=== PATIENT | female | born 1990 | race Caucasian/White ===

== ENCOUNTER 2018-11-23 18:38 | Emergency (ER) | payer SELFPAY ==
[2018-11-23] MEDS ORDERED: ONDANSETRON 4 MG (ODT) TAB ONE (20:09)
[2018-11-23 20:39] LABS: Urine Bacteria 20-50 /HPF (<20); Urine RBC <5 /HPF (NONE SEEN)
[2018-11-23 20:40] LABS: Urine Amorphous Sediment 3+ /HPF (NONE SEEN); Urine Culture Reflex Order NOT NEEDED; Urine Mucus HEAVY /HPF (NONE SEEN)
[2018-11-23 21:51] LABS: Urine Blood TRACE (NEG); Urine Glucose NEGATIVE (NEG); Urine Protein TRACE (NEG); Urine Specific Gravity 1.015 (1.005-1.030); Urine pH 8.5 (5.0-7.0)
[2018-11-23] MEDS ORDERED: NA CHLORIDE 0.9% 1,000 ML ONE (21:59)
--- NOTE | 2018-11-23 22:25 | ER ---
Nurse's Notes [facility] Name: Elvia Carrington Age: 28 yrs Sex: Female : 1990 Arrival Date: 11/23/2018 Time: 18:45 Bed 12 Private MD: Diagnosis: Nausea and vomiting;Fever, unspecified;Volume depletion Presentation: 11/23 18:45 Presenting complaint: Patient states: subjective fever, vomiting since 1500. Transition sv of care: patient was not received from another setting of care. Onset of symptoms. Care prior to arrival: None. 18:45 Method Of Arrival: Ambulatory sv 18:45 Acuity: OSVALDO 4 sv 19:21 Risk Assessment: Do you want to hurt yourself or someone else? Patient reports no rv desire to harm self or others. Initial Sepsis Screen: Does the patient meet any 2 criteria? No. Patient's initial sepsis screen is negative. Does the patient have a suspected source of infection? No. Patient's initial sepsis screen is negative. Triage Assessment: 18:47 General: Appears in no apparent distress. uncomfortable, Behavior is calm, cooperative, sv appropriate for age. Neuro: Level of Consciousness is awake, alert, obeys commands, Gait is steady. Respiratory: Respiratory effort is even, unlabored. GI: Reports vomiting. 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 - Social history:: Smoking status: unknown. - Ebola Screening: : No symptoms or risks identified at this time. Screenin:21 Abuse screen: Denies threats or abuse. Denies injuries from another. Nutritional rv screening: No deficits noted. Tuberculosis screening: No symptoms or risk factors identified. Fall Risk None identified. Assessment: 19:19 General: Appears in no apparent distress. comfortable, Behavior is calm, cooperative. rv Pain: Denies pain. Neuro: Level of Consciousness is awake, alert, obeys commands, Oriented to person, place, time, situation. Cardiovascular: Patient's skin is warm and dry. Respiratory: Airway is patent. GI: Reports vomiting. GI: Abdomen is flat, Bowel sounds present X 4 quads. : No signs and/or symptoms were reported regarding the genitourinary system. EENT: No signs and/or symptoms were reported regarding the EENT system. Derm: Skin is intact. Musculoskeletal: No signs and/or symptoms reported regarding the musculoskeletal system. 20:00 Reassessment: Patient is alert, oriented x 3, equal unlabored respirations, skin bb warm/dry/pink. flu and strep swab obtained pt awaiting results, family at bedside. 22:35 Reassessment: Patient is alert, oriented x 3, equal unlabored respirations, skin bb warm/dry/pink. pt states she is feeling achy would like some analgesic Yadira Dumont QUALITY ASSURANCE NURSE notified pt medicated see APR. Pt is awaiting completion of IV fluids prior to discharge. 22:59 Reassessment: Patient is alert, oriented x 3, equal unlabored respirations, skin bb warm/dry/pink. pt verbalized understanding of and agrees to plan of care discharge instructions given pt ambulated with steady gait to exit accompanied by family Patient states feeling better. Vital Signs: 18:46 BP 121 / 85; Pulse 97; Resp 16; Temp 98.2(O); Pulse Ox 100% ; Weight 55.75 kg (M); rv Height 5 ft. 0 in. (152.40 cm); 21:39 BP 111 / 73 Supine; Pulse 97; Resp 16 S; Pulse Ox 100% on R/A; bb 21:41 BP 110 / 79 Sitting; Pulse 100; Resp 16 S; Pulse Ox 100% on R/A; bb 21:43 BP 108 / 73 Standing; Pulse 117; Resp 16 S; Pulse Ox 100% on R/A; bb 23:00 BP 113 / 70; Pulse 89; Resp 16 S; Pulse Ox 100% on R/A; bb 18:46 Body Mass Index 24.00 (55.75 kg, 152.40 cm) rv ED Course: 18:45 Patient arrived in ED. sv 18:45 Triage completed. sv 18:46 Arm band placed on. sv 19:06 Devin Isidro, JOSEFA is Primary Nurse. rv 19:21 Patient has correct armband on for positive identification. Call light in reach. Side rv rails up X 1. Pulse ox on. 19:45 Yadira Dumont FNP-C is PHCP. snw 19:46 Blue Montague MD is Attending Physician. snw 20:11 Flu and/or RSV swab sent to lab. Strep swab sent to lab. bb 21:57 Inserted saline lock: 20 gauge in right antecubital area, using aseptic technique. wy Blood collected. 22:36 No provider procedures requiring assistance completed. bb 23:00 IV discontinued, intact, bleeding controlled, No redness/swelling at site. Pressure bb dressing applied. Administered Medications: 20:11 Drug: Zofran 4 mg Route: PO; bb 21:00 Follow up: Response: No adverse reaction bb 22: Drug: NS 0.9% 1000 ml Route: IV; Rate: 1 bolus; Site: right antecubital; lp1 23:00 Follow up: IV Status: Completed infusion; IV Intake: 1000ml bb 22:26 Drug: Motrin 400 mg Route: PO; bb 23:01 Follow up: Response: No adverse reaction bb Intake: 23:00 IV: 1000ml; Total: 1000ml. bb Outcome: 22:24 Discharge ordered by . kalina 23:00 Discharged to home ambulatory, with family. bb 23:00 Condition: stable 23:00 Discharge instructions given to patient, Instructed on discharge instructions, follow up and referral plans. medication usage, Demonstrated understanding of instructions, follow-up care, medications, Prescriptions given X 1. 23:02 Patient left the ED. bb Signatures: Carmen Tucker, RN RN sv Yadira Dumont, MEDIA PRODUCTION OPERATOR-C MEDIA PRODUCTION OPERATOR-CsnTiana Wood, RN RN bb Radha Dixon, RN RN lpAnn Walker wy Devin Isidro RN RN rv Corrections: (The following items were deleted from the chart) 18:47 18:46 Pulse 97bpm; Resp 16bpm; Pulse Ox 100%; Temp 98.2F Oral; 54.43 kg; Height 5 ft. 0 sv in.; BMI: 23.4; sv 19:06 18:46 BP 121 / 85; Pulse 97bpm; Resp 16bpm; Pulse Ox 100%; Temp 98.2F Oral; 54.43 kg; rv Height 5 ft. 0 in.; BMI: 23.4; sv
--- NOTE | 2018-11-23 22:26 | EDPHYS ---
Physician Documentation [facility] Name: Elvia Carrington Age: 28 yrs Sex: Female : 1990 Arrival Date: 11/23/2018 Time: 18:45 Bed 12 Private MD: ED Physician Blue Montague HPI: 11/23 21:50 This 28 yrs old Female presents to ER via Ambulatory with complaints of snw Vomiting, Fever. 21:50 The patient presents to the emergency department with nausea, vomiting. Onset: The snw symptoms/episode began/occurred suddenly, last night. Possible causes: daughter. The symptoms are aggravated by food . Severity of symptoms: At their worst the symptoms were moderate. The patient has not experienced similar symptoms in the past. It is unknown whether or not the patient has recently seen a physician. 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 - Social history:: Smoking status: unknown. - Ebola Screening: : No symptoms or risks identified at this time. ROS: 21:13 Constitutional: Negative for fever, chills, and weight loss, Eyes: Negative for injury, snw pain, redness, and discharge, ENT: Negative for injury, pain, and discharge, Neck: Negative for injury, pain, and swelling, Cardiovascular: Negative for chest pain, palpitations, and edema, Respiratory: Negative for shortness of breath, cough, wheezing, and pleuritic chest pain, : Negative for injury, bleeding, discharge, and swelling, MS/Extremity: Negative for injury and deformity, Skin: Negative for injury, rash, and discoloration, Neuro: Negative for headache, weakness, numbness, tingling, and seizure. 21:13 Abdomen/GI: Positive for nausea and vomiting. 21:13 Back: Positive for pain at rest, of the low back area. Exam: 21:13 Constitutional: This is a well developed, well nourished patient who is awake, alert, snw and in no acute distress. Head/Face: Normocephalic, atraumatic. Eyes: Pupils equal round and reactive to light, extra-ocular motions intact. Lids and lashes normal. Conjunctiva and sclera are non-icteric and not injected. Cornea within normal limits. Periorbital areas with no swelling, redness, or edema. ENT: Nares patent. No nasal discharge, no septal abnormalities noted. Tympanic membranes are normal and external auditory canals are clear. Oropharynx with no redness, swelling, or masses, exudates, or evidence of obstruction, uvula midline. Mucous membranes moist. Neck: Trachea midline, no thyromegaly or masses palpated, and no cervical lymphadenopathy. Supple, full range of motion without nuchal rigidity, or vertebral point tenderness. No Meningismus. Chest/axilla: Normal chest wall appearance and motion. Nontender with no deformity. No lesions are appreciated. Cardiovascular: Regular rate and rhythm with a normal S1 and S2. No gallops, murmurs, or rubs. Normal PMI, no JVD. No pulse deficits. Respiratory: Lungs have equal breath sounds bilaterally, clear to auscultation and percussion. No rales, rhonchi or wheezes noted. No increased work of breathing, no retractions or nasal flaring. Abdomen/GI: Soft, non-tender, with normal bowel sounds. No distension or tympany. No guarding or rebound. No evidence of tenderness throughout. Back: No spinal tenderness. No costovertebral tenderness. Full range of motion. Skin: Warm, dry with normal turgor. Normal color with no rashes, no lesions, and no evidence of cellulitis. MS/ Extremity: Pulses equal, no cyanosis. Neurovascular intact. Full, normal range of motion. Neuro: Awake and alert, GCS 15, oriented to person, place, time, and situation. Cranial nerves II-XII grossly intact. Motor strength 5/5 in all extremities. Sensory grossly intact. Cerebellar exam normal. Normal gait. Psych: Awake, alert, with orientation to person, place and time. Behavior, mood, and affect are within normal limits. Vital Signs: 18:46 BP 121 / 85; Pulse 97; Resp 16; Temp 98.2(O); Pulse Ox 100% ; Weight 55.75 kg (M); rv Height 5 ft. 0 in. (152.40 cm); 21:39 BP 111 / 73 Supine; Pulse 97; Resp 16 S; Pulse Ox 100% on R/A; bb 21:41 BP 110 / 79 Sitting; Pulse 100; Resp 16 S; Pulse Ox 100% on R/A; bb 21:43 BP 108 / 73 Standing; Pulse 117; Resp 16 S; Pulse Ox 100% on R/A; bb 23:00 BP 113 / 70; Pulse 89; Resp 16 S; Pulse Ox 100% on R/A; bb 18:46 Body Mass Index 24.00 (55.75 kg, 152.40 cm) rv MDM: 19:46 Patient medically screened. snw 22:25 Data reviewed: vital signs, nurses notes. Data interpreted: Pulse oximetry: on room air snw is 100 %. Interpretation: normal. Counseling: I had a detailed discussion with the patient and/or guardian regarding: the historical points, exam findings, and any diagnostic results supporting the discharge/admit diagnosis, lab results, the need for outpatient follow up, to return to the emergency department if symptoms worsen or persist or if there are any questions or concerns that arise at home. Special discussion: Based on the history and exam findings, there is no indication for further emergent testing or inpatient evaluation. I discussed with the patient/guardian the need to see the primary care provider for further evaluation of the symptoms. 11/23 19:46 Order name: Urine Microscopic Only; Complete Time: 20:50 snw 11/23 20:00 Order name: Strep; Complete Time: 20:50 snw 11/23 20:00 Order name: Flu; Complete Time: 20:50 snw 11/23 20:19 Order name: Urine Dipstick--Ancillary (enter results); Complete Time: 21:55 mw2 11/23 20:19 Order name: Urine --Ancillary (enter results); Complete Time: 21:55 mw2 11/23 20:42 Order name: Throat Culture EDND 11/23 19:46 Order name: Urine Test (obtain specimen); Complete Time: 19:50 snw 11/23 19:46 Order name: Urine Dipstick-Ancillary (obtain specimen); Complete Time: 19:50 snw 11/23 21:11 Order name: PO challenge; Complete Time: 22:34 snw 11/23 21:11 Order name: Orthostatics; Complete Time: 21:49 snw Administered Medications: 20:11 Drug: Zofran 4 mg Route: PO; bb 21:00 Follow up: Response: No adverse reaction bb 22:01 Drug: NS 0.9% 1000 ml Route: IV; Rate: 1 bolus; Site: right antecubital; lp1 23:00 Follow up: IV Status: Completed infusion; IV Intake: 1000ml 22:26 Drug: Motrin 400 mg Route: PO; 23:01 Follow up: Response: No adverse reaction bb Disposition: 23:25 Co-signature as Attending Physician, Blue Montague MD. rn Disposition: 11/23/18 22:24 Discharged to Home. Impression: Nausea and vomiting, Fever, unspecified, Volume depletion. - Condition is Stable. - Discharge Instructions: Dehydration, Adult, Nausea and Vomiting, Adult, Rehydration, Adult. - Prescriptions for promethazine 25 mg Oral Tablet - take 1 tablet by ORAL route every 6 hours As needed; 20 tablet. - Work release form, Medication Reconciliation Form, Thank You Letter, Antibiotic Education, Prescription Opioid Use form. - Follow up: Private Physician; When: 2 - 3 days; Reason: Recheck today's complaints, Continuance of care, Re-evaluation by your physician. Follow up: Emergency Department; When: As needed; Reason: Worsening of condition. Signatures: Dispatcher [employer] EDCarmen Onofre, RN RN sv Yadira Dumont, REFERENCE ASSISTANT-C REFERENCE ASSISTANT-Csnw Tiana Gonzales RN RN bb Blue Montague MD MD rn Pena, Laura, RN RN lp1 Devin Isidro RN RN rv Corrections: (The following items were deleted from the chart) 23:02 22:24 11/23/2018 22:24 Discharged to Home. Impression: Nausea and vomiting; Fever, bb unspecified; Volume depletion. Condition is Stable. Forms are Medication Reconciliation Form, Thank You Letter, Antibiotic Education, Prescription Opioid Use. Follow up: Private Physician; When: 2 - 3 days; Reason: Recheck today's complaints, Continuance of care, Re-evaluation by your physician. Follow up: Emergency Department; When: As needed; Reason: Worsening of condition. snw
[2018-11-23] MEDS ORDERED: IBUPROFEN 200 MG TAB PO ONE (22:29)
[2018-11-24 00:59] VITALS: O2SAT 100
[2018-11-24 01:01] VITALS: TEMP 98.2
[2018-11-24 01:05] VITALS: BP 113/70
== END 2018-11-23 23:02 | disposition home or self-care (01) ==
LOC: ER 18:38
DX: R11.2 Nausea with vomiting, unspecified (principal); E86.9 Volume depletion, unspecified; R50.9 Fever, unspecified; Z88.0 Allergy status to penicillin; Z88.6 Allergy status to analgesic agent
CPT/HCPCS: 81003; 81015; 81025; 87070; 87081; 87804; J7030